=== PATIENT | female | born 1955 | race Caucasian/White ===

== ENCOUNTER → 2019-07-15 05:41 | Outpatient (CLI) | payer MEDICAID, SELFPAY ==
--- NOTE | 2019-07-15 13:13 | NEURO_ITS ---
NCS and/or EMG Patient Report Ordering Doctor: Madeline Hopper DATE OF SERVICE: 07/15/19 Anjali Armendariz is a 63-year old female who presents for electrodiagnostic testing of the lower limbs. She reports of burning and tingling in both feet. Electrodiagnostic findings right peroneal motor nerve demonstrates prolonged d istal latency bilaterally with normal amplitude and conduction velocity. Normal tibial motor response bilaterally. Prolonged sural latency bilaterally. Normal superficial peroneal and medial plantar responses. On needle EMG, all muscles tested in the lower limb showed no evidence of denervation with normal motor unit action potentials. Electrodiagnostic impression: This is an abnormal study in the lower limbs 1. Electrodiagnostic findings suggestive of peripheral polyneuropathy, with involvement of motor and sensory nerves. There is no evidence of axonal loss. 2. No electrodiagnostic evidence is noted for lumbosacral radiculopathy. If there are any further questions, please not hesitate to contact me
== END ==
PROVIDERS: Family Provider Otolaryngology Otolaryngology/Facial Plastic Surgery; PCP Internal Medicine; Referring Provider Internal Medicine; Visit Provider Internal Medicine
DX: G62.9 Polyneuropathy, unspecified (principal)
CPT/HCPCS: 95886; 95912

== ENCOUNTER 2022-02-22 23:32 | Emergency (ER) | payer MEDICAID, SELFPAY ==
[2022-02-22 23:33] VITALS: BP 143/79; PULSE 86; RESP 15; TEMP 36.2; O2SAT 99; BMI 21.7
[2022-02-23 00:01] LABS: Absolute Lymphocyte Count 0.93 X10^3/uL (0.83-4.51); Absolute Neutrophil Count 3.1 X10^3/uL (2.0-7.7); Basophil# 0.02 X10^3/uL; Basophil% 0.5 % (0-1); Eosinophil# 0.04 X10^3/uL; Eosinophils% 0.9 % (0-5); Hematocrit 34.7 % (37-47); Hemoglobin 12.4 g/dL (12.0-15.0); Lymphocyte # 0.93 X10^3/ul (0.83-4.51); Lymphocyte % 21.2 % (19-41); Mean Corp Hgb Conc 35.7 g/dL (32-36); Mean Corpuscular Hgb 29.8 pg (27.0-32.0); Mean Corpuscular Volume 83.4 fL (81-99); Mean Platelet Vol. 9.7 fl (6.2-12.0); Monocyte# 0.27 X10^3/uL; Monocyte% 6.2 % (0-10); NRBC Flagged by Analyzer 0 % (0-5); Neutrophil # 3.12 X10^3/uL (2.7-7.7); Platelet Count 178 K/mm3 (150-450); RBC Distribution Width SD 33.7 fl (35.1-43.9); Red Blood Count 4.16 M/mm3 (4.2-5.4); White Blood Count 4.4 K/mm3 (4.4-11.0)
[2022-02-23] MEDS: 0.9% Normal Saline 1,000 ML 1000 ML IV (00:13)
[2022-02-23] MEDS: Ondansetron 4 MG/2 ML Vial IV (00:14)
--- NOTE | 2022-02-23 00:15 | EDS_ITS ---
HPI History of Present Illness Chief Complaint: Nausea/Vomiting Informant: patient Narrative Narrative: Patient is a 66-year-old female with history of polyneuropathy, lupus and migraines presenting with headache, abdominal pain, nausea and vomiting. Patient states has been having some stomach issues lately and is scheduled to have a colonoscopy at 9 AM tomorrow morning with Dr. Zuñiga. She took her prep of GoLytely starting at 8 PM. She sounds like she has had a complete prep but she has developed abdominal discomfort, nausea and vomiting. She then started develop a headache mostly behind her right eye. She states has a history of migraines and this is where she gets headaches. She states that headache was gradual in onset. She has some associated photophobia. No associated numbness and tingling. She also notes that normally she would take 600 mg of gabapentin in the evening but she did not because of her symptoms tonight. Patient states abdominal pain is all over but worse in her epigastric region. She denies any blood in her vomit or her stool. She also notes she has been belching a lot. No other complaints at this time. PFSH PFSH Home Medications ondansetron 4 mg disintegrating tablet 4 mg PO Q6H PRN nausea and vomiting #10 tabs 02/23/22 [Rx Last Taken Unknown] Allergy/AdvReac Type Severity Reaction Status Date / Time No Known Allergies Allergy Verified 02/22/22 23:37 Social History Smoking Status: Never smoker ROS ROS ED Constitutional Constitutional ED: Denies chills or fever(s) Eyes Eyes: Denies change in vision ENT ENT ED: Denies ear pain or rhinorrhea Cardiovascular Cardiovascular: Denies chest pain or palpitations Respiratory/Chest Respiratory/Chest: Denies cough Gastrointestinal Gastrointestinal: Reports abdominal pain, diarrhea, nausea and vomiting Genitourinary Genitourinary ED: Denies dysuria or hematuria Musculoskeletal Musculoskeletal: Denies arthralgias or myalgias Integumentary Denies rash Neurologic Neurologic: Reports headache(s); Denies paresthesias or weakness Psychiatric Psychiatric: Denies anxiety EXAM Physical Exam Const Vital Signs: 02/22/22 23:33 02/23/22 01:41 02/23/22 02:02 Temperature 97.2 F L 98.2 F Temperature Source Temporal Temporal Pulse Rate 86 117 H 98 Respiratory Rate 15 17 Blood Pressure 143/79 H 137/94 H 126/73 H Blood Pressure Mean 100 108 90 Pulse Ox 99 98 98 Oxygen Delivery Method Room Air Room Air Room Air Positive well nourished and well developed General Appearance ED: well developed and NAD HEENT Negative for trauma Eyes PERRL and EOMs intact bilaterally Neck supple Neck Narrative: Normal range of motion Chest Wall inspection of chest normal and palpation of chest normal Resp normal respiratory effort and clear to auscultation bilaterally Cardio regular rate, regular rhythm and no murmurs GI normal to inspection, nondistended, normoactive bowel sounds Palpation: tender epigastric; Negative for guarding Back/Spine no CVA tenderness Neuro oriented x3 and no sensory deficits noted Sensorium / Orientation: alert Motor Exam: strength 5/5 throughout Psych mental status grossly normal Skin no rashes or lesions noted MDM MDM MDM Narrative Medical decision making narrative: Patient is evaluated for headache, abdominal pain, nausea and vomiting. She recently did a bowel prep and then started having symptoms. She has a history of migraine headaches. Patient is mildly hypertensive upon arrival to the ER but stable. She is given IV fluids, Zofran and Toradol. On repeat evaluation her abdomen is improved and her headache is improved but she still has a headache. She has normal neurologic exam and this headache is consistent with prior migraines I do not think head imaging is indicated at this time. Her CBC is normal however her BMP shows mild hypokalemia and mild hyponatremia. Kidney function is at baseline and normal. Urinalysis consistent with some mild contamination but not consistent with infection. Patient is given oral potassium replacement the ER. She is given IV Benadryl and Reglan for further migraine treatment and is given her oral dose of gabapentin. On repeat evaluation she states she is feeling better and she will be discharged home. She is counseled that she is medically cleared to continue to her colonoscopy in the morning. Lab Data Labs: Laboratory Results - last 24 hr 02/22/22 02/22/22 02/23/22 23:55 23:55 00:23 WBC 4.4 RBC 4.16 L Hgb 12.4 Hct 34.7 L MCV 83.4 MCH 29.8 MCHC 35.7 RDW Std Deviation 33.7 L RDW Coeff of [place] 11.0 L Plt Count 178 MPV 9.7 Immature Gran % (Auto) 0.200 Neut % (Auto) 71.0 H Lymph % (Auto) 21.2 [place] % (Auto) 6.2 Eos % (Auto) 0.9 Baso % (Auto) 0.5 Absolute Neuts (auto) 3.1 Absolute Lymphs (auto) 0.93 Nucleated RBC % 0 Sodium 133 L Potassium 3.1 L Chloride 95 L Carbon Dioxide 27.0 Anion Gap 11 BUN 11 Creatinine 0.84 Estim Creat Clear Calc 63.34 Est GFR (MDRD) Af Amer 88 Est GFR (MDRD) Non-Af 72 BUN/Creatinine Ratio 13.1 Glucose 133 H Calcium 9.0 Total Bilirubin 0.90 AST 24 ALT 27 Alkaline Phosphatase 35 L Total Protein 7.0 Albumin 3.8 Globulin 3.2 Albumin/Globulin Ratio 1.2 Lipase 185 Urine Color Yellow Urine Clarity Clear Urine pH 5.0 Ur Specific [place] 1.025 Urine Protein Negative Urine Glucose (UA) Normal Urine Ketones 50 H Urine Occult Blood 25 H Urine Nitrite Negative Urine Bilirubin Negative Urine Urobilinogen Normal Ur Leukocyte Esterase Negative Urine RBC 0-5 SEEN Urine WBC 0 SEEN Ur Squamous Epith Cells 0-5 SEEN Urine Bacteria 1+ Urine Mucus 1+ Discharge Plan Triage Chief Complaint: Nausea/Vomiting ED Provider: Leonila Abdullahi Dx/Rx/DC Orders Clinical Impression: Headache, migraine, Nausea & vomiting, Abdominal pain, Hypokalemia Instructions: ED Hypokalemia, ED, Migraine (Classical), ED Vomiting (Adult) Prescriptions: New ondansetron 4 mg tablet,disintegrating 4 mg PO Q6H PRN (Reason: nausea and vomiting) Qty: 10 0RF Primary Care Provider: Lorna Adamson Referrals: Lorna Adamson MD [Primary Care Provider] - Activity Restrictions/Additional Instructions: I believe that you are stable to go to your colonoscopy tomorrow. Resume taking her medications at home after colonoscopy tomorrow. Eat high potassium foods when you over the next few days such as bananas or sweet potatoes Disposition Disposition: Home, Self Care Discharge Date/Time: 02/23/22 02:08
[2022-02-23 00:18] LABS: ALB/GLOB Ratio 1.2 RATIO (0.9-2.4); AST(SGOT) 24 U/L (15-37); Alanine Aminotransfer ALT/SGPT 27 U/L (13-56); Albumin, Serum 3.8 g/dL (3.2-5.0); Alkaline Phosphatase 35 U/L (45-117); Anion Gap 11 (5-15); BUN 11 mg/dL (7-18); BUN/Creat Ratio 13.1 RATIO (10-20); Chloride 95 mmol/L (98-107); Creatinine, Serum 0.84 mg/dL (0.55-1.02); EST Glomerular Filtration Rate 72 mL/min (>60); Est Glom Filt Rate - Afr Amer 88 mL/min (>60); Estimated Creatinine Clearance 63.34 ml/min; Globulin 3.2 g/dL (2.2-4.2); Glucose 133 mg/dL (74-106); Lipase 185 U/L (73-393); Potassium 3.1 mmol/L (3.5-5.1); Sodium Level 133 mmol/L (136-145)
[2022-02-23] MEDS: Ketorolac 15 MG/ML Vial IV (00:20)
[2022-02-23 00:27] LABS: White Blood Cells 0 SEEN /hpf (0-5)
[2022-02-23 00:28] LABS: Color, Urine Yellow (Yellow); Glucose, Dipstick Normal (Normal); Ketone-Dipstick 50 mg/dl (Negative); Leukocyte Esterase-Dipstick Negative /ul (Negative); Nitrite-Dipstick Negative (Negative); Occult Blood-Urine 25 /ul (Negative); Protein-Dipstick Negative (Negative); Specific Gravity, Urine 1.025 (1.002-1.030); Urine Bilirubin Dipstick Negative (Negative); Urine Clarity Clear (Clear); Urine Urobilinogen Normal (Normal)
[2022-02-23 00:33] LABS: Bacteria 1+ /hpf (None Seen); Mucous, Urine 1+ /hpf (<or=2+); Red Blood Cells-Urine 0-5 SEEN /hpf (0-5); Squamous Epithelial Cells - UA 0-5 SEEN /hpf (5-10)
[2022-02-23] MEDS: DiphenhydrAMINE 50 MG/ML Syringe 25 MG IV (01:38)
[2022-02-23] MEDS: Potassium Chloride Oral Tablet 20 MEQ PO (01:38)
[2022-02-23] MEDS: Metoclopramide 10 MG/2 ML Vial 5 MG IV (01:38)
[2022-02-23 01:41] VITALS: BP 137/94; PULSE 117; RESP 17; TEMP 36.8; O2SAT 98
[2022-02-23] MEDS: Gabapentin 600 MG Tablet PO (02:01)
[2022-02-23 02:02] VITALS: BP 126/73; PULSE 98; O2SAT 98
== END 2022-02-23 02:08 | disposition home or self-care (01) ==
PROVIDERS: Emergency Provider Emergency Medicine; PCP Internal Medicine; Visit Provider Emergency Medicine
DX: G43.909 Migraine, unspecified, not intractable, without status migrainosus (principal); R10.9 Unspecified abdominal pain; E87.1 Hypo-osmolality and hyponatremia; E87.6 Hypokalemia
CPT/HCPCS: 80053; 81001; 83690; 85025; 99284; J7030; A4216; J2405